=== PATIENT | male | born 1960 | race Caucasian/White ===

== ENCOUNTER 2017-09-30 11:11 | Outpatient (CLI) | payer MEDICARE, OTHER | END 2017-09-30 11:12 | disposition home or self-care (01) | LOC: SC 11:11 | PROVIDERS: ATTEND Internal Medicine Pulmonary Disease | DX: G47.33 Obstructive sleep apnea (adult) (pediatric) (principal); I10 Essential (primary) hypertension; E11.40 Type 2 diabetes mellitus with diabetic neuropathy, unspecified; F40.240 Claustrophobia | CPT/HCPCS: 99203; G0463; 99212 ==

== ENCOUNTER 2017-11-16 19:28 | Outpatient (CLI) | payer MEDICARE, OTHER | END 2017-11-16 19:29 | disposition home or self-care (01) | LOC: SC 19:28 | PROVIDERS: ATTEND Internal Medicine Pulmonary Disease | DX: G47.33 Obstructive sleep apnea (adult) (pediatric) (principal); G47.61 Periodic limb movement disorder; I49.9 Cardiac arrhythmia, unspecified | CPT/HCPCS: 95810 ==

== ENCOUNTER 2017-11-24 14:58 | Outpatient (CLI) | payer MEDICARE, OTHER | END 2017-11-24 14:59 | disposition home or self-care (01) | LOC: SC 14:58 | PROVIDERS: ATTEND Internal Medicine Pulmonary Disease | DX: G47.33 Obstructive sleep apnea (adult) (pediatric) (principal) | CPT/HCPCS: 99213; G0463; 99212 ==

== ENCOUNTER 2017-12-23 09:16 | Outpatient (CLI) | payer MEDICARE, OTHER | END 2017-12-23 09:17 | disposition home or self-care (01) | LOC: SC 09:16 | PROVIDERS: ATTEND Internal Medicine Pulmonary Disease | DX: Z53.9 Procedure and treatment not carried out, unspecified reason (principal) ==

== ENCOUNTER 2018-01-06 10:15 | Outpatient (CLI) | payer MEDICARE, OTHER | END 2018-01-06 10:16 | disposition home or self-care (01) | LOC: SC 10:15 | PROVIDERS: ATTEND Internal Medicine Pulmonary Disease | DX: G47.33 Obstructive sleep apnea (adult) (pediatric) (principal) | CPT/HCPCS: 99213; G0463; 99212 ==

== ENCOUNTER 2019-01-01 17:31 | Outpatient (CLI) | payer MEDICARE, OTHER | END 2019-01-01 17:32 | disposition E | LOC: EMS 17:31 | PROVIDERS: ATTEND Surgery | CPT/HCPCS: A0425; A0427 ==